=== PATIENT | female | born 1955 | race Caucasian/White ===

== ENCOUNTER 2019-07-03 15:16 | Emergency (ER) | payer MEDICARE, OTHER ==
[~2019-07-03] VITALS: Ht 152.4 cm; Wt 68.2 kg
[2019-07-03 15:23] VITALS: BP 100/52
[2019-07-03] MEDS ORDERED: GLIM2 PO (15:32)
[2019-07-03] MEDS ORDERED: MONT10TA21 PO (15:32)
[2019-07-03] MEDS ORDERED: NITR0.4T52 SL (15:32)
[2019-07-03] MEDS ORDERED: CHOL100018 PO (15:32)
[2019-07-03] MEDS ORDERED: ATEN-187 PO (15:32)
[2019-07-03] MEDS ORDERED: TRAZ-252 PO (15:32)
[2019-07-03] MEDS ORDERED: BENZ-51 PO (15:32)
[2019-07-03] MEDS ORDERED: POTA8TAB71 PO (15:32)
[2019-07-03] MEDS ORDERED: MELA5TAB3 PO (15:32)
[2019-07-03] MEDS ORDERED: ATOR40TA28 PO (15:32)
[2019-07-03] MEDS ORDERED: ALBU8HFA IH (15:32)
[2019-07-03] MEDS ORDERED: FLUT1BLS10 IH (15:32)
[2019-07-03] MEDS ORDERED: FLUT16H NASAL (15:32)
[2019-07-03] MEDS ORDERED: FAMO20 PO (15:32)
[2019-07-03] MEDS ORDERED: OMEG1CAP2 PO (15:32)
[2019-07-03] MEDS ORDERED: INSU100I26 SQ (15:32)
[2019-07-03] MEDS ORDERED: ASPI-728 PO (15:32)
[2019-07-03] MEDS ORDERED: UBID200C37 PO (15:32)
[2019-07-10] MEDS ORDERED: ATEN-188 PO (12:24)
[2019-07-13] MEDS ORDERED: DULA0.75 SQ (07:16)
[2019-07-13] MEDS ORDERED: MONT10TA21 PO (07:16)
== END 2019-07-03 15:58 | disposition home or self-care (01) ==
LOC: EMS 15:16
DX: Z03.818 Encounter for observation for suspected exposure to other biological agents ruled out (principal); R05 Cough; J45.909 Unspecified asthma, uncomplicated; E11.9 Type 2 diabetes mellitus without complications; I25.2 Old myocardial infarction; F12.90 Cannabis use, unspecified, uncomplicated; Z88.8 Allergy status to other drugs, medicaments and biological substances; Z79.82 Long term (current) use of aspirin; Z79.4 Long term (current) use of insulin
CPT/HCPCS: 99283; U0003

== ENCOUNTER 2019-07-13 08:18 | Day surgery (SDC) | payer MEDICARE, OTHER ==
[~2019-07-13] VITALS: Ht 152.4 cm; Wt 71.8 kg
[~2019-07-13 08:18] MED LIST: ALBU8HFA IH; ASPI-728 PO; ATEN-188 PO; ATOR40TA28 PO; BENZ-51 PO; CHOL100018 PO; DULA0.75 SQ; FAMO20 PO; FLUT16H NASAL; FLUT1BLS10 IH; GLIM2 PO; INSU100I26 SQ; MELA5TAB3 PO; MONT10TA21 PO; NITR0.4T52 SL; OMEG1CAP2 PO; POTA8TAB71 PO; SODIUM CHLORIDE 0.9% 1,000 ML IV ONE; SODIUM CHLORIDE 0.9% 1,000 ML ONE; TRAZ-252 PO; UBID200C37 PO
[2019-07-13] MEDS ORDERED: LIDOCAINE 4% 50 ML SOLUTION TP ONE (08:19)
[2019-07-13] MEDS ORDERED: LIDOCAINE 2% 30 ML JELLY TP ONE (08:19)
[2019-07-13] MEDS ORDERED: BENZOCAINE 20% 50 MCG/SPRAY 57 GM TP ONE (08:19)
[2019-07-13] MEDS ORDERED: ALBUTEROL SULFATE 2.5 MG/0.5 ML NEB SOLUTION NEB ONE (08:19)
[2019-07-13 09:12] LABS: GLUCOMETER DEV NAME(LOC) SDS.; GLUCOSE,POINT OF CARE 141 MG/DL (70-110)
[2019-07-13] MEDS ORDERED: MethylPREDNISolone SOD SUCC 125 MG/2 ML VIAL IVP ONE (09:30)
[2019-07-13] MEDS ORDERED: ONDANSETRON HCL 4 MG/2 ML VIAL IVP STA (10:30)
[2019-07-13] MEDS ORDERED: MIDAZOLAM HCL 2 MG/2 ML VIAL ONE (11:31)
[2019-07-13] MEDS ORDERED: FentaNYL CITRATE-PF 100 MCG/2 ML VIAL ONE (11:31)
[2019-07-13] MEDS ORDERED: OXYGEN THERAPY IH SCH (20:00)
== END 2019-07-13 11:45 | disposition home or self-care (01) ==
LOC: SURGERY 08:18
PROVIDERS: ATTEND Internal Medicine Critical Care Medicine
DX: R05 Cough (principal); R91.1 Solitary pulmonary nodule; J47.9 Bronchiectasis, uncomplicated; E11.9 Type 2 diabetes mellitus without complications; I10 Essential (primary) hypertension; E78.00 Pure hypercholesterolemia, unspecified; K21.9 Gastro-esophageal reflux disease without esophagitis; Z87.442 Personal history of urinary calculi; Z98.890 Other specified postprocedural states; Z72.89 Other problems related to lifestyle; Z79.899 Other long term (current) drug therapy
CPT/HCPCS: 31623; 31624; 71045; 82962; 87015; 87070; 87101; 87205; 87206; 87220; 88112; 88312; 93005; J2250; J3010; J7030; J7613; Z7610